=== PATIENT | female | born 1985 ===

== ENCOUNTER → 2018-08-06 | Outpatient (CLI) | payer OTHER | END | disposition home or self-care (01) | LOC: TOM 14:10 | DX: J31.0 Chronic rhinitis (principal); J34.2 Deviated nasal septum ==

== ENCOUNTER 2018-11-05 09:07 | Outpatient (CLI) | payer OTHER | END 2018-11-05 09:09 | disposition home or self-care (01) | LOC: SONOGRAMA 09:07 | DX: N60.09 Solitary cyst of unspecified breast (principal) ==

== ENCOUNTER 2018-11-05 09:54 | Outpatient (CLI) | payer OTHER | END 2018-11-05 10:07 | disposition home or self-care (01) | LOC: LAB 09:54 | DX: E11.65 Type 2 diabetes mellitus with hyperglycemia (principal); E03.8 Other specified hypothyroidism; E78.49 Other hyperlipidemia; M81.0 Age-related osteoporosis without current pathological fracture; N39.0 Urinary tract infection, site not specified; Z12.11 Encounter for screening for malignant neoplasm of colon ==